=== PATIENT | female | born 2000 | race Caucasian/White ===

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

== ENCOUNTER → 2022-03-27 07:23 | Outpatient (BNVA) | payer MEDICAID, SELFPAY | PROVIDERS: Family Provider Family Medicine; PCP Family Medicine; Visit Provider Family Medicine | DX: N39.0 Urinary tract infection, site not specified (principal) | CPT/HCPCS: 81000; 87086 ==

== ENCOUNTER → 2022-06-08 15:26 | Outpatient (BNVA) | payer MEDICAID, SELFPAY | PROVIDERS: Family Provider Family Medicine; PCP Family Medicine; Visit Provider Obstetrics & Gynecology | DX: F32.9 Major depressive disorder, single episode, unspecified (principal); N92.6 Irregular menstruation, unspecified; N93.9 Abnormal uterine and vaginal bleeding, unspecified | CPT/HCPCS: 83001; 84146; 84443; 84702; 85025 ==

== ENCOUNTER → 2022-06-19 10:39 | Outpatient (BNVA) | payer MEDICAID, SELFPAY | PROVIDERS: Family Provider Family Medicine; PCP Family Medicine; Visit Provider Obstetrics & Gynecology | DX: N92.6 Irregular menstruation, unspecified (principal); N83.202 Unspecified ovarian cyst, left side; N83.201 Unspecified ovarian cyst, right side | CPT/HCPCS: 76830 ==

== ENCOUNTER → 2022-12-22 09:59 | Outpatient (BNVA) | payer MEDICAID, SELFPAY | PROVIDERS: Family Provider Family Medicine; PCP Family Medicine; Visit Provider Obstetrics & Gynecology | DX: Z32.01 Encounter for pregnancy test, result positive (principal) | CPT/HCPCS: 81025 ==

== ENCOUNTER 2023-01-18 10:37 | Outpatient (CLI) | payer MEDICAID, SELFPAY ==
--- NOTE | 2023-01-18 11:00 | US_ITS ---
WS: [id number] ULTRASOUND BREAST RIGHT TECHNIQUE: Ultrasound right breast focused area of concern. CLINICAL INFORMATION: right breast mass COMPARISON: None. FINDINGS: Ultrasound RIGHT breast 11:00 position 4 cm from the nipple in the area of palpable concern. Normal u nderlying parenchymal tissue. No cystic or solid lesions. No suspicious lesions to target for biopsy. Recommend annual screening mammography age 40. US/US breast RT limited* [id number] IMPRESSION: BI-RADS 2 benign FOLLOW UP: Annual screening mammography age 40
== END 2023-01-18 10:38 | disposition home or self-care (01) ==
LOC: RAD 10:40
PROVIDERS: PCP Family Medicine; Visit Provider Nurse Practitioner Family
DX: N63.10 Unspecified lump in the right breast, unspecified quadrant (principal)
CPT/HCPCS: 76642

== ENCOUNTER → 2023-01-29 11:28 | Outpatient (BNVA) | payer MEDICAID, SELFPAY | PROVIDERS: PCP Family Medicine; Visit Provider Nurse Practitioner Women's Health | DX: Z34.91 Encounter for supervision of normal pregnancy, unspecified, first trimester (principal); Z3A.10 10 weeks gestation of pregnancy; R35.0 Frequency of micturition | CPT/HCPCS: 76801; 84315; 87086 ==

== ENCOUNTER → 2023-02-18 15:00 | Outpatient (BNVA) | payer MEDICAID, SELFPAY | PROVIDERS: PCP Family Medicine; Visit Provider Obstetrics & Gynecology | DX: O09.899 Supervision of other high risk pregnancies, unspecified trimester (principal) | CPT/HCPCS: 80307; 84315; 85027; 86592; 86762; 86803; 86850; 86900; 87086; 87340; 87491; 87591; 87661; 87798; 87806; 88175 ==

== ENCOUNTER → 2023-02-21 08:21 | Outpatient (BNVA) | payer MEDICAID, SELFPAY | PROVIDERS: PCP Family Medicine; Visit Provider Obstetrics & Gynecology | DX: O09.899 Supervision of other high risk pregnancies, unspecified trimester (principal) | CPT/HCPCS: 87491; 87591; 87661 ==

== ENCOUNTER → 2023-04-05 14:28 | Outpatient (BNVA) | payer MEDICAID, SELFPAY | PROVIDERS: PCP Family Medicine; Visit Provider Obstetrics & Gynecology | DX: O32.1XX0 Maternal care for breech presentation, not applicable or unspecified (principal); Z34.92 Encounter for supervision of normal pregnancy, unspecified, second trimester; Z3A.20 20 weeks gestation of pregnancy | CPT/HCPCS: 76805 ==

== ENCOUNTER → 2023-05-03 07:57 | Outpatient (BNVA) | payer MEDICAID, SELFPAY | PROVIDERS: PCP Family Medicine; Visit Provider Obstetrics & Gynecology | DX: O09.899 Supervision of other high risk pregnancies, unspecified trimester (principal) | CPT/HCPCS: 76816 ==

== ENCOUNTER → 2023-05-04 12:22 | Outpatient (BNVA) | payer MEDICAID, SELFPAY | PROVIDERS: PCP Family Medicine; Visit Provider Nurse Practitioner Women's Health | DX: Z87.59 Personal history of other complications of pregnancy, childbirth and the puerperium; O09.899 Supervision of other high risk pregnancies, unspecified trimester | CPT/HCPCS: 82950; 84156; 84315; 87086; 87491; 87591; 87661 ==

== ENCOUNTER 2023-05-10 10:56 | Outpatient (CLI) | payer MEDICAID, SELFPAY ==
[2023-05-10 11:51] LABS: Total Volume, Urine 1650 mL; Urine Total Protein 24 Hour 115.5 mg/24hr (0-150)
== END 2023-05-10 10:57 | disposition home or self-care (01) ==
PROVIDERS: PCP Family Medicine; Visit Provider Nurse Practitioner Women's Health
DX: O09.899 Supervision of other high risk pregnancies, unspecified trimester (principal); Z87.59 Personal history of other complications of pregnancy, childbirth and the puerperium; Z3A.00 Weeks of gestation of pregnancy not specified
CPT/HCPCS: 84156

== ENCOUNTER → 2023-06-04 09:27 | Outpatient (BNVA) | payer MEDICAID, SELFPAY | PROVIDERS: PCP Family Medicine; Visit Provider Obstetrics & Gynecology | DX: O09.899 Supervision of other high risk pregnancies, unspecified trimester (principal) | CPT/HCPCS: 84315; 85025 ==

== ENCOUNTER → 2023-06-29 08:01 | Outpatient (BNVA) | payer MEDICAID, SELFPAY | PROVIDERS: PCP Family Medicine; Visit Provider Nurse Practitioner Women's Health | DX: O09.899 Supervision of other high risk pregnancies, unspecified trimester (principal); L29.9 Pruritus, unspecified; Z87.59 Personal history of other complications of pregnancy, childbirth and the puerperium; O99.012 Anemia complicating pregnancy, second trimester; F41.9 Anxiety disorder, unspecified; F32.A Depression, unspecified | CPT/HCPCS: 82542; 84315 ==

== ENCOUNTER → 2023-07-12 10:19 | Outpatient (BNVA) | payer MEDICAID, SELFPAY | PROVIDERS: PCP Family Medicine; Visit Provider Obstetrics & Gynecology | DX: O09.899 Supervision of other high risk pregnancies, unspecified trimester (principal); O99.012 Anemia complicating pregnancy, second trimester; Z87.59 Personal history of other complications of pregnancy, childbirth and the puerperium | CPT/HCPCS: 84315; 85025 ==

== ENCOUNTER → 2023-07-26 10:12 | Outpatient (BNVA) | payer MEDICAID, SELFPAY | PROVIDERS: PCP Family Medicine; Visit Provider Obstetrics & Gynecology | DX: O09.899 Supervision of other high risk pregnancies, unspecified trimester (principal) | CPT/HCPCS: 84315; 87081 ==

== ENCOUNTER 2023-08-11 03:03 | Inpatient (IN) | payer MEDICAID, SELFPAY ==
[2023-08-10 22:20] VITALS: RESP 17
[2023-08-10 22:54] VITALS: BP 132/87; PULSE 108
[2023-08-11] VITALS (93 sets, daily range): BP systolic 103–152; BP diastolic 55–92; PULSE 89–160; RESP 15–18; TEMP 35.2–37.3; O2SAT 96–100
[2023-08-11 00:33] LABS: Basophils % 0.3 %; Eosinophils # 0.2 10^3/uL (0.0-0.8); Eosinophils % 1.6 %; Hematocrit 38.9 % (36-47); Lymphocytes # 2.8 10^3/uL (0.8-4.8); Lymphocytes % 19.3 %; Mean Corpuscular HGB Conc 32.9 g/dL (30-55); Mean Corpuscular Hemoglobin 29.7 pg (27-33); Mean Corpuscular Volume 90.3 fl (85-98); Monocytes # 0.8 10^3/uL (0.2-0.9); Monocytes % 5.4 %; Neutrophils # 10.68 10^3/uL (1.8-7.7); Neutrophils % 72.7 %; Nucleated Red Blood Cells % 0 %; Platelet Count 215 10^3/cmm (157-399); Red Blood Count 4.31 10^6/uL (3.85-5.65); Red Cell Distribution Width 15.2 % (12.1-15.1); White Blood Count 14.69 10^3/uL (3.29-11.43)
--- NOTE | 2023-08-11 03:35 | PM.OBGYHP ---
Providers/Chief Complaint Admitting Physician: Jason Landaverde MD Primary ORACLE DATABASE CONSULTANT: Wei Zamora MD Primary Care Provider: Usama Brian DO Chief Complaint: POSSIBLE SROM HPI ORACLE DATABASE CONSULTANT History of Present Illness 22 y.o. EDC August 21, 2023 At 38 w 5 d No complications Presents to L&D c/o fluid leakage + active movements Mild UCs No bleeding h/o x one Present Details : 2 Para: 1 Labs Rubella: Immune RPR: Negative GBS: Negative Medications/Allergies Home Medications Medication Instructions Recorded Confirmed Last Taken Type prenat.vits,sia,abp-nonw-xjdyj 1 tab PO DAILY 01/29/23 08/09/23 Unknown History aspirin 81 mg tablet,delayed 81 mg PO DAILY 06/04/23 08/09/23 Unknown History release (Adult Low Dose Aspirin) docusate sodium 100 mg tablet 100 mg PO BID constipation #60 tabs 06/14/23 08/09/23 Unknown Rx ferrous sulfate 325 mg (65 mg See Rx Instructions .Route 06/21/23 08/09/23 Unknown Rx iron) tablet .COMPLEX #180 tabs Allergies Allergy/AdvReac Type Severity Reaction Status Date / Time lavender (Lavandula Allergy Severe hives Verified 08/09/23 10:30 angustifolia) PFSH ORACLE DATABASE CONSULTANT PFSH: Medical History Abnormal uterine bleeding (AUB) Acute blood loss anemia Anxiety and depression was managed with fluoxetine 40mg; came off this in 2021; now managed w/o medication Asthma, mild Has had asthma as a child which usually pleasant during allergy season. Has not had to use her inhaler in over a year. Denies any intubations or hospitalizations for asthma Breast mass, right 01/18/2023--benign right breast ultrasound; annual screening to begin at age 40 H/O drainage of abscess History of gestational hypertension (~2019) No pertinent past medical history neghx: htn,dm,thyroid,dvt/pe PCP: No Santana NP Family History Grandfather Diabetes PATERNAL Stroke maternal great Father Hypertension Thyroid disease Grandmother Colon cancer MATERNAL, age unknown Stroke maternal great Denies family history of Ovarian cancer Clotting disorder Heart disease Breast cancer Anesthesia complication Bleeding disorder Uterine cancer Other Female Reproductive History: Hx Age of Menarche: 11 History History History 2 Term 1 0 Miscarriages/Ectopic 0 Living Children 1 Past Pregnancies Del. Date GA/Weeks Outcome Route Wt Inf Gender Labor Lgth Comp. Anesthesia Location 09/27/19 41 live - full term Vaginal 8 lb 13 oz Female Fourth degree laceration regional Dr. Joyner at [facility] KATE Calculator Estimated Delivery Date Method Current WG Current Estimate 08/21/23 LMP (Certain) 38w 5d Other Estimates 08/21/23 Ultrasound #1 38w 5d Specific Issues/Plans CONCEIVED ON OCPS--sono c/w dates HX DEPRESSION HX GEST HTN-discussed ASA at 16; again at 24wk Vitals/I&O/Wt Last Vital Signs Temp 98.2 F 08/12/23 00:26 Pulse 95 08/12/23 00:26 Resp 16 08/12/23 00:26 BP 123/82 08/12/23 00:26 Pulse Ox 99 08/12/23 00:26 O2 Del Method Room Air 08/12/23 00:26 08/11/23 08/11/23 08/12/23 14:59 22:59 06:59 Intake Total 50 / 50 Balance 50 / 50 Weight last 48 hrs Weight 208 lb Physical Exam Narrative: Weight 208 lbs, 5?7? VS normal Comfortable Awake, alert Lungs: clear Cor: RRR Abd: soft, nontender Perineum: + gross clear fluid Cervix: 3 cm / 90% / -3 / posterior Ext: no edema External monitor: heart tracing good variability, + accelerations Urinary Catheter Management: Berkowitz: Cath Placed During This Visit: yes Urinary Catheter Date of Insertion: 08/11/23 Urinary Catheter Time of Insertion: 07:26 Data 08/12/23 01:00 Results Labs OB ([facility]): Obstetrics US 05/03/23 Blood Type B Positive 08/10/23 Antibody Screen Negative 08/10/23 Hct 31.1 % (36-47) L 08/12/23 Hgb 10.30 g/dL (11.27-16.99) L 08/12/23 Rho(D) Type Rh positive 08/10/23 Plt Count 184 10^3/cmm (157-399) 08/12/23 Hep Bs Antigen Non-reactive (Nonreactive) 02/18/23 Hepatitis C Antibody Non-reactive (Nonreactive) 02/18/23 Rubella IgG Antibody 26.1 IU/mL (0.0-10.0) H 02/18/23 RPR Nonreactive (Nonreactive) 02/18/23 HIV 1&2 Ab & HIV 1 Ag Non-reactive (Non-Reactiv) 02/18/23 TSH 0.41 uIU/mL (0.27-4.20) 06/08/22 Glucose 1 Hr 50 gm 99 mg/dL (85-140) 05/04/23 Uric Acid 5.0 mg/dl (2.4-5.7) 09/26/19 FSH 5.0 mIU/mL 06/08/22 Ser , Semi-Qnt 0.50 mIU/mL 06/08/22 HCG, Qual Positive (Negative) H 12/22/22 Urine Opiates Screen Negative ng/mL (Negative) 02/18/23 Ur Barbiturates Screen Negative ng/mL (Negative) 02/18/23 Ur Phencyclidine Scrn Negative ng/mL (Negative) 02/18/23 Ur Amphetamines Screen Negative ng/mL (Negative) 02/18/23 U Benzodiazepines Scrn Negative ng/mL (Negative) 02/18/23 Urine Cocaine Screen Negative ng/mL (Negative) 02/18/23 U Marijuana (THC) Screen Negative ng/mL (Negative) 02/18/23 Micro Urine Specimen 05/04/23 Pap Smear Interpret See note 02/18/23 Prolactin 6.24 ng/mL (4.8-23.3) 06/08/22 A&P Assessment and plan (1) Term : 38 w 5 d (2) Spontaneous rupture of membranes: admit expectant management Attestations Medical Necessity Statement*: patient at 38 w 5 d with spontaneous rupture of membranes Coding Level of Care Code Acute Code for Chg Fwd Diagnoses Term Z34.90 Spontaneous rupture of membranes Time Spent (min) 30
[2023-08-11] MEDS: lactated ringers 1,000 ML 999 ML IV ×2 (04:58→05:59)
--- NOTE | 2023-08-11 06:21 | ANES.PREANE2 ---
Pre-Anesthetic Assessment Height/Weight: Height 1.7 m Temp Pulse Resp BP Pulse Ox O2 Del Method 97.5 F L 117 H 17 139/69 99 Room Air 08/11/23 04:58 08/11/23 06:13 08/11/23 00:26 08/11/23 06:13 08/11/23 06:13 08/11/23 00:29 Preop Diagnosis: Labor pain NIGEL Was Beta Tyrone taken within 24 hours: N/A Was Clonidine taken within 24 hours: N/A Social No alcohol and No tobacco Exam alert, oriented x 3, clear to auscultation bilaterally and regular rate & rhythm Airway Submandibular: within normal limits Cervical ROM: within normal limits Mallampati: Class II Dentition: full History/ROS No significant history except as noted and No significant complaints Pulmonary None reported CV/HEM None reported None reported Hepatic None reported GI Gastroesophageal Reflux Disease Metabolic None reported Musc/skel None reported Neuropsych None reported Anesthetic Plan ASA status: 2 Anesthesia: Anesthesia Evaluation and Regional (specify below) Other: NIGEL Risk of > 500 ml blood loss (7ml/kg in children): No Medications/Allergies Home Medications Medication Instructions Recorded Confirmed Last Taken Type prenat.vits,sia,oda-pkiy-lmxgf 1 tab PO DAILY 01/29/23 08/09/23 Unknown History aspirin 81 mg tablet,delayed 81 mg PO DAILY 06/04/23 08/09/23 Unknown History release (Adult Low Dose Aspirin) docusate sodium 100 mg tablet 100 mg PO BID constipation #60 tabs 06/14/23 08/09/23 Unknown Rx ferrous sulfate 325 mg (65 mg See Rx Instructions .Route 06/21/23 08/09/23 Unknown Rx iron) tablet .COMPLEX #180 tabs Allergies Allergy/AdvReac Type Severity Reaction Status Date / Time lavender (Lavandula Allergy Severe hives Verified 08/09/23 10:30 angustifolia) [facility] Anesthesia Medical History Abnormal uterine bleeding (AUB) Acute blood loss anemia Anxiety and depression was managed with fluoxetine 40mg; came off this in 2021; now managed w/o medication Asthma, mild Has had asthma as a child which usually pleasant during allergy season. Has not had to use her inhaler in over a year. Denies any intubations or hospitalizations for asthma Breast mass, right 01/18/2023--benign right breast ultrasound; annual screening to begin at age 40 H/O drainage of abscess History of gestational hypertension (~2019) No pertinent past medical history neghx: htn,dm,thyroid,dvt/pe PCP: No Santana NP Family History Grandfather Diabetes PATERNAL Stroke maternal great Father Hypertension Thyroid disease Grandmother Colon cancer MATERNAL, age unknown Stroke maternal great Denies family history of Ovarian cancer Clotting disorder Heart disease Breast cancer Anesthesia complication Bleeding disorder Uterine cancer Female Reproductive History : 2 Data Anesthesia 08/11/23 00:00 Short CBC 08/11/23 Range/Units 00:00 WBC 14.69 H (3.29-11.43) 10^3/uL Hgb 12.80 (11.27-16.99) g/dL Hct 38.9 (36-47) % MCV 90.3 (85-98) fl Plt Count 215 (157-399) 10^3/cmm Neut % (Auto) 72.7 % Neut # (Auto) 10.68 H (1.8-7.7) 10^3/uL Blood Bank 08/10/23 23:55 Blood Type B Positive Rho(D) Type Rh positive Antibody Screen Negative Cardiac Studies: No Data to Display
--- NOTE | 2023-08-11 06:23 | ANES.PROC ---
Anesthesia Procedures Procedure/Date: 08/11/23 Epidural: Time Out Performed: Yes Consents Signed: Procedure Consent Consent: requested by attending/covering physician, from patient, risks and benefits reviewed and patient agrees to proceed Lumbar Level: L3-L4 Epidural position: sitting Epidural procedure: sterile prep of area, 1% lidocaine to numb the area, 18 g needle, neg for paresthesia, test dose given, 1.5% xylocaine 1:200k epi (5cc), 0.2% Ropivacaine bolus ml (4cc and fentanyl 100 mcg), placed PCEA, no systemic response, sterile dressing applied, L.U.D. no apparent complications and 0.2% Ropiavacaine @ mls/hr (10cc/hour) Additional Comments: Pt tolerated well
[2023-08-11] MEDS: ROPivacaine syringe 100 MG/50 ML SYRINGE 10 MG EPIDURAL (06:28)
[2023-08-11] MEDS: dextrose 5%-lactated ringers 1,000 ML 125 ML IV (07:00)
[2023-08-11] MEDS: ROPivacaine syringe 100 MG/50 ML SYRINGE 13 MG EPIDURAL (10:06)
--- NOTE | 2023-08-11 12:50 | P.PCNOB_ITS ---
Delivery Note: Date of delivery: August 11, 2023 Pre-delivery diagnoses: 38 w 5 d spontaneous rupture of membranes Post-delivery diagnoses: same as above vaginal delivery second-degree perineal laceration repaired Procedure: vaginal delivery second-degree perineal laceration repaired Op report anesthesia: Epidural Delivering Physician: Jason Landaverde MD Estimated blood loss (mL): 300 Findings: , vigorous Normal placenta and cord Second-degree perineal laceration repaired EBL: 300 cc No complications Pre-Delivery Course: normal labor progression Delivery: vaginal Post-Delivery Status: good History History History 2 Term 1 0 Miscarriages/Ectopic 0 Living Children 1 Past Pregnancies Del. Date GA/Weeks Outcome Route Wt Inf Gender Labor Lgth Comp. Anesth esia Location 09/27/19 41 live - full term Vaginal 8 lb 13 oz Female Fourth degree laceration regional Dr. Joyner at [facility] A&P Assessment and plan (1) Vaginal delivery: (2) Second degree perineal laceration: repaired Coding Level of Care Code Acute Code for Chg Fwd Diagnoses Vaginal delivery O80 Second degree perineal laceration O70.1 Time Spent (min) 60
--- NOTE | 2023-08-11 12:50 | PM.OBGYPN ---
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 Subjective Subjective: Interval history: August 11, 2023, 1250 DELIVERY NOTE , vigorous Normal placenta and cord Second-degree perineal laceration repaired EBL: 300 cc No complications Labor: Station: -1 Amniotic Membrane Status: Ruptured Monitor Mode: Palpation Contraction Pattern: Regular Status: Category I Vitals/I&O/Wt Last Vital Signs Temp 98.2 F 08/12/23 00:26 Pulse 95 08/12/23 00:26 Resp 16 08/12/23 00:26 BP 123/82 08/12/23 00:26 Pulse Ox 99 08/12/23 00:26 O2 Del Method Room Air 08/12/23 00:26 08/11/23 08/11/23 08/12/23 14:59 22:59 06:59 Intake Total 50 / 50 Balance 50 / 50 Weight last 48 hrs Weight 208 lb Physical Exam Urinary Catheter Management: Berkowitz: Cath Placed During This Visit: yes Urinary Catheter Date of Insertion: 08/11/23 Urinary Catheter Time of Insertion: 07:26 Data 08/12/23 01:00 A&P Assessment and plan (1) Vaginal delivery: (2) Second degree perineal laceration: repaired Attestations Medical Necessity Statement*: patient at 38 w 5 d, vaginal delivery Coding Level of Care Code Acute Code for Chg Fwd Diagnoses Vaginal delivery O80 Second degree perineal laceration O70.1 Time Spent (min) 60
[2023-08-11] MEDS: ibuprofen 800 mg tablet PO ×2 (14:19→21:04)
[2023-08-11] MEDS: docusate sodium 100 mg Capsule PO (18:46)
--- NOTE | 2023-08-11 18:53 | PC.NURSE ---
TALKED WITHMAURIZIO PERKINS AND SHE WAS OK WITH INCREASING DOSE TO 13 PER HOUR.
[2023-08-12 00:26] VITALS: BP 123/82; PULSE 95; RESP 16; TEMP 36.8; O2SAT 99
[2023-08-12 01:06] LABS: Hematocrit 31.1 % (36-47); Mean Corpuscular HGB Conc 33.1 g/dL (30-55); Mean Corpuscular Volume 90.7 fl (85-98); Mean Platelet Volume 10.1 fL (7.4-10.4); Platelet Count 184 10^3/cmm (157-399); Red Blood Count 3.43 10^6/uL (3.85-5.65); Red Cell Distribution Width 15.4 % (12.1-15.1); White Blood Count 16.27 10^3/uL (3.29-11.43)
[2023-08-12 04:44] VITALS: BP 122/80; PULSE 90; RESP 15; TEMP 36.8; O2SAT 100
--- NOTE | 2023-08-12 08:40 | ANE.PACU2 ---
Inpatient post-anesthesia follow up: Airway intact: Yes Vital signs: Temperature 98.3 F Pulse Rate 90 Respiratory Rate 15 Blood Pressure 122/80 Pulse Oximetry 100 Oxygen Delivery Me thod Room Air Oxygen Flow Rate Fraction of Inspir ed Oxygen Hydration adequate: Yes Nausea and vomiting: No Pain level: 1 Mental status: Baseline
[2023-08-12] MEDS: prenatal vitamin Capsule 1 CAP PO (08:59)
[2023-08-12] MEDS: ibuprofen 800 mg tablet PO (08:59)
[2023-08-12] MEDS: docusate sodium 100 mg Capsule PO (09:00)
[2023-08-12 09:30] VITALS: BP 112/74; PULSE 87; TEMP 36.6; O2SAT 98
[2023-08-12 13:15] VITALS: BP 117/77; PULSE 96; RESP 14; O2SAT 97
--- NOTE | 2023-08-12 15:15 | P.DS_ITS ---
Discharge Providers HAND BOOKED FOLDER AND STITCHER Date of Admission: 08/11/23 03:03 Date of Discharge: 08/12/23 Attending Provider at Admission: Jsaon Landaverde MD Attending Provider at Discharge: Jason Landaverde MD Consults: none Primary HAND BOOKED FOLDER AND STITCHER: Wei Zamora MD Primary Care Provider: Usama Brian DO Diagnoses at Discharge Discharge Diagnosis (1) Vaginal delivery: Status: Acute Reason for Visit Reason for Visit: POSSIBLE SROM Brief History: 22 y.o. at 38 w 5 d presented to L&D with spontaneous rupture of membranes Hospital Course Hospital Course patient with normal labor progression had vaginal delivery with repair of second-degree perineal laceration no complications discharged home on first day Information Peripartum Data: Delivery Method: Vaginal Laceration description: Perineal - 2nd Degree Episiotomy description: None complications: none Physical Exam Narrative: afebrile, VS normal comfortable, awake, alert Abd:? soft, nontender.? fundus firm Ext:? no edema;? nontender Urinary Catheter Management: Berkowitz: Cath Placed During This Visit: yes Urinary Catheter Date of Insertion: 08/11/23 Urinary Catheter Time of Insertion: 07:26 History History History 2 2 Term 1 0 Miscarriages/Ectopic 0 Living Children 1 Past Pregnancies Del. Date GA/Weeks Outcome Route Wt Inf Gender Labor Lgth Comp. Anesth esia Location 09/27/19 41 live - full term Vaginal 8 lb 13 oz Female Fourth degree laceration regional Dr. Joyner at [facility] Discharge Data Studies Completed and Pending none Laboratory Results WBC 16.27 10^3/uL (3.29-11.43) H 08/12/23 01:00 RBC 3.43 10^6/uL (3.85-5.65) L 08/12/23 01:00 Hgb 10.30 g/dL (11.27-16.99) L 08/12/23 01:00 Hct 31.1 % (36-47) L 08/12/23 01:00 MCV 90.7 fl (85-98) 08/12/23 01:00 MCH 30.0 pg (27-33) 08/12/23 01:00 MCHC 33.1 g/dL (30-55) 08/12/23 01:00 RDW 15.4 % (12.1-15.1) H 08/12/23 01:00 Plt Count 184 10^3/cmm (157-399) 08/12/23 01:00 MPV 10.1 fL (7.4-10.4) 08/12/23 01:00 Neut % (Auto) 72.7 % 08/11/23 00:00 Lymph % (Auto) 19.3 % 08/11/23 00:00 [place] % (Auto) 5.4 % 08/11/23 00:00 Eos % (Auto) 1.6 % 08/11/23 00:00 Baso % (Auto) 0.3 % 08/11/23 00:00 Neut # (Auto) 10.68 10^3/uL (1.8-7.7) H 08/11/23 00:00 Lymph # (Auto) 2.8 10^3/uL (0.8-4.8) 08/11/23 00:00 [place] # (Auto) 0.8 10^3/uL (0.2-0.9) 08/11/23 00:00 Eos # (Auto) 0.2 10^3/uL (0.0-0.8) 08/11/23 00:00 Baso # (Auto) 0.0 10^3/uL (0.0-0.1) 08/11/23 00:00 Nucleated RBC % (auto) 0 % 08/11/23 00:00 Nucleated RBCs # 0.0 /100WBC 08/11/23 00:00 Blood Type B Positive 08/10/23 23:55 Rho(D) Type Rh positive 08/10/23 23:55 Antibody Screen Negative 08/10/23 23:55 Procedures Performed vaginal delivery repair of second-degree perineal laceration Vitals Last Vital Signs Temp 97.9 F 08/12/23 09:30 Pulse 96 08/12/23 13:15 Resp 14 08/12/23 13:15 BP 117/77 08/12/23 13:15 Pulse Ox 97 08/12/23 13:15 O2 Del Method Room Air 08/12/23 09:30 Results Labs OB ([facility]): 2 Obstetrics US 05/03/23 Blood Type B Positive 08/10/23 Antibody Screen Negative 08/10/23 Hct 31.1 % (36-47) L 08/12/23 Hgb 10.30 g/dL (11.27-16.99) L 08/12/23 Rho(D) Type Rh positive 08/10/23 Plt Count 184 10^3/cmm (157-399) 08/12/23 Hep Bs Antigen Non-reactive (Nonreactive) 02/18/23 Hepatitis C Antibody Non-reactive (Nonreactive) 02/18/23 Rubella IgG Antibody 26.1 IU/mL (0.0-10.0) H 02/18/23 RPR Nonreactive (Nonreactive) 02/18/23 HIV 1&2 Ab & HIV 1 Ag Non-reactive (Non-Reactiv) 02/18/23 TSH 0.41 uIU/mL (0.27-4.20) 06/08/22 Glucose 1 Hr 50 gm 99 mg/dL (85-140) 05/04/23 Uric Acid 5.0 mg/dl (2.4-5.7) 09/26/19 FSH 5.0 mIU/mL 06/08/22 Ser , Semi-Qnt 0.50 mIU/mL 06/08/22 HCG, Qual Positive (Negative) H 12/22/22 Urine Opiates Screen Negative ng/mL (Negative) 02/18/23 Ur Barbiturates Screen Negative ng/mL (Negative) 02/18/23 Ur Phencyclidine Scrn Negative ng/mL (Negative) 02/18/23 Ur Amphetamines Screen Negative ng/mL (Negative) 02/18/23 U Benzodiazepines Scrn Negative ng/mL (Negative) 02/18/23 Urine Cocaine Screen Negative ng/mL (Negative) 02/18/23 U Marijuana (THC) Screen Negative ng/mL (Negative) 02/18/23 Micro Urine Specimen 05/04/23 Pap Smear Interpret See note 02/18/23 Prolactin 6.24 ng/mL (4.8-23.3) 06/08/22 Discharge Plan Discharge Patient Disposition: Home Condition: Stable Prescriptions: Continued prenat.vits,sia,anl-melp-pfofu Tablet 1 tab PO DAILY docusate sodium 100 mg tablet 100 mg PO BID Qty: 60 3RF ferrous sulfate 325 mg (65 mg iron) tablet See Rx Instructions .ROUTE .COMPLEX Qty: 180 0RF Dose Instruction: TAKE 1 TABLET BY MOUTH TWICE DAILY FOR ANEMIA. Rx Instructions: TAKE 1 TABLET BY MOUTH TWICE DAILY FOR ANEMIA. Discontinued aspirin [Adult Low Dose Aspirin] 81 mg tablet,delayed release (DR/EC) 81 mg PO DAILY Discharge Orders: Discharge Order (Routine); Ordered 08/12/23 Ordered By: Jason Landaverde Referrals: Jason Landaverde MD [Physician] - (Patient to see Dr. Landaverde for six week follow up appointment on September 22 at 2:30PM ) Discharge Diet: Usual diet Discharge Activity: Increase activity as tolerated Patient Instructions: Depression (DC), Bleeding (DC), Preeclampsia and Eclampsia After Delivery (GEN), Hemorrhage (DC), OB Discharge Report, OB Food/Drug Interaction Guide, Opioid Safety, OB Home Care, OB Proud Parent Packet, OB Vaginal Deliveries - [facility] Discharge Attestations HAND BOOKED FOLDER AND STITCHER Time Spent in Discharge Care*: less than 30 min Status at Discharge: Cognitive status at discharge: cognitively intact , Behavioral status at discharge: cooperative , Coding Level of Care Code Acute Code for Chg Fwd Diagnoses Vaginal delivery O80 Time Spent (min) 20
--- NOTE | 2023-08-12 15:15 | P.PN_ITS ---
IRRIGATION SERVICE TECHNICIAN Subjective Subjective: Interval history: no c/o no bleeding, pain eating, voiding, ambulating well caring for without any problems Labor: Station: -1 Amniotic Membrane Status: Ruptured Monitor Mode: Palpation Contraction Pattern: Regular Status: Category I Vitals/I&O/Wt Last Vital Signs Temp 97.9 F 08/12/23 09:30 Pulse 96 08/12/23 13:15 Resp 14 08/12/23 13:15 BP 117/77 08/12/23 13:15 Pulse Ox 97 08/12/23 13:15 O2 Del Method Room Air 08/12/23 09:30 Physical Exam Narrative: afebrile, VS normal comfortable, awake, alert Abd:? soft, nontender.? fundus firm Ext:? no edema;? nontender Urinary Catheter Management: Berkowitz: Cath Placed During This Visit: yes Urinary Catheter Date of Insertion: 08/11/23 Urinary Catheter Time of Insertion: 07:26 Data 08/12/23 01:00 A&P Assessment and plan (1) Vaginal delivery: PPD #1? doing well ? discharge home today ? instructions and precautions given call/return if fever, chills, headache, blurry vision, nausea, vomiting, abdominal pain; vaginal bleeding or discharge; shortness of breath, chest pain, leg pains or swelling; inability to void, perineal pain or swelling; feelings of depression or mood changes; thoughts of suicide or harming others; inability to care for baby. f/u in 6 weeks or PRN Attestations Medical Necessity Statement*: patient s/p vaginal delivery, plan discharge today Coding Level of Care Code Acute Code for Chg Fwd Diagnoses Vaginal delivery O80 Time Spent (min) 20
== END 2023-08-12 13:28 | disposition home or self-care (01) | DRG 807 ==
LOC: OPOB 07:30
PROVIDERS: Admitting Provider Obstetrics & Gynecology; PCP Family Medicine; Visit Provider Obstetrics & Gynecology
DX: O70.1 Second degree perineal laceration during delivery (principal); Z37.0 Single live birth; Z3A.38 38 weeks gestation of pregnancy
CPT/HCPCS: 36415; 51702; 59025; 59409; 83986; 85025; 85027; 86850; 86900; 96374; 99211; J2795; J3010; J7120; J7121

== ENCOUNTER → 2024-08-17 10:47 | Outpatient (BNVA) | payer MEDICAID, SELFPAY | PROVIDERS: PCP Family Medicine; Visit Provider Obstetrics & Gynecology | DX: Z30.430 Encounter for insertion of intrauterine contraceptive device (principal) | CPT/HCPCS: 81025 ==